=== PATIENT | male | born 1975 | race Caucasian/White ===

== ENCOUNTER → 2019-07-18 | Outpatient (CLI) | payer OTHER ==
--- NOTE | 2019-07-18 16:31 | CARDNUC ---
[place] [address] CARDIAC NUCLEAR IMAGING REPORT Name: DAMI RIVAS Room: [facility]#: [id number] Admission: 07/18/19 Attend Phys: Rafa Sesay, Discharge: Date of : 71 Date of Service: 07/18/19 1630 Report #: [id number] THIS REPORT FOR: cc: FAM - Family physician unknown FAM - Family physician unknown Petr Sherman MD [facility] ~ APPROVED REPORT Study performed: 07/18/2019 09:22:55 Exam: Nuclear Stress Test Indication: Chest pain, Dyspnea, Fatigue, Bradycardia. Patient Location: Out-Patient Stress Tech: Annette Berg Stress Nurse: Shannon Zavala R.N. NM Tech:DARIA Rasmussen Ht: 5 ft 8 in Wt: 200 lbs BSA: 2.04 m2 BMI: 30.40 Medical History Medical History: Chest discomfort, Fatigue, Hyperlipidemia, SOB, Bradycardia, YOSELIN, Dizziness/Vertigo, chews tobacco. Medications: None Allergies: No known drug allergies Cardiac Risk Factors: Age, FHX of CAD, Hyperlipidemia, SOB, Tobacco History (Current/Recent)-chews, Bradycardia. Previous Cardiac Procedures: None Pretest Chest Pain Characteristics: No chest pain Exercise History: Physically active Physical Disabilities: None Meds Held (24 hrs): None Stress Test Details Stress Test: Exercise stress testing was performed using a Matthew protocol. HR Resting HR: 47 bpm Max Heart Rate (APMHR): 174 bpm Max HR Achieved: 158 bpm Target HR (85% APMHR): 147 bpm % of APMHR: 90 Recovery HR: 75 bpm BP Resting BP: 108/72 [place] [address] CARDIAC NUCLEAR IMAGING REPORT Name: DAMI RIVAS Room: [facility]#: [id number] Admission: 07/18/19 Attend Phys: Rafa Sesay, Discharge: Date of : 71 Date of Service: 07/18/19 1630 Report #: [id number] Max BP: 204/86 mmHg ECG Resting ECG: Sinus Rhythm Stress ECG: Sinus Tachycardia ST Change: None Arrhythmia: None Recovery ECG: Sinus Rhythm Recovery ST Change: None Recovery Arrhythmia: None Clinical Reason for Termination: Completed protocol, Maximal effort, Patient Request Stress Symptoms: Dyspnea Exercise duration: 11 min 29 sec Exercise capacity: 13.48 METs Overall Exercise Capacity for Age: Normal The patient tolerated standard Matthew protocol exercise without significant cardiac symptoms. Nurse Comments A 44 year old male presented for a Matthew protocol Nuclear Stress Test r/t increased fatigue, dyspnea, bradycardia, chest discomfort and dizziness. Treadmill well tolerated to stage 4, exercise capacity - Normal. Recovery unremarkable. Patient was escorted by staff to Nuclear Medicine for imaging. Patient was stable and stated he felt good at that time. Stress ECG Conclusion The baseline 12-lead EKG shows sinus rhythm without significant ST segment or T wave abnormality. EKGs obtained during and post exercise stress show sinus rhythm and sinus tachycardia with no significant ST segment or T-wave changes when compared to baseline. There were no stress-induced arrhythmias. NM EXAM: Myocardial Perfusion REST/STRESS Imaging Protocol: Rest Tc-99m/Stress Tc-99m 1 day Resting Data Rest SPECT myocardial perfusion imaging was performed in supine position 30 minutes following the intravenous injection of 10.1 mCi of Tc-99m Sestamibi. Time of rest injection: 754 Date: 07/18/2019 The images were gated to evaluate regional wall motion and calculate left ventricular [place] [address] CARDIAC NUCLEAR IMAGING REPORT Name: DAMI RIVAS Room: [facility]#: [id number] Admission: 07/18/19 Attend Phys: AndrewJuan Reggie Sesay, Discharge: Date of : 71 Date of Service: 07/18/19 1630 Report #: [id number] Administration Route: IV Administration Site: Right Hand Exercise Stress At peak stress, the patient was injected intravenously with 31.2mCi of Tc-99m Sestamibi. Time of stress injection: 939 Date: 07/18/2019 Administration Route: IV Administration Site: Right Hand Gated Stress SPECT was performed 30 minutes after stress injection. The images were gated to evaluate regional wall motion and calculate left ventricular ejection fraction. Prone imaging was performed. Study Quality Study: Good Artifact: No artifact Study Data At rest, the left ventricular ejection fraction was 56%.. Post stress, the left ventricular ejection was 63%.. TID = 0.86. Perfusion Perfusion images obtained at rest and post exercise stress show uniform uptake of the radioisotope throughout the myocardium. There were no defects to suggest infarct or ischemia. Wall Motion Normal left ventricular wall motion. Nuclear Conclusion ECG Findings: negative for ischemia Clinical Findings: negative for ischemia Nuclear Findings: negative for ischemia Exercise Capacity: normal Left Ventricular Function: normal Risk Study: low Myocardial perfusion images show no defect to suggest infarct or ischemia. Left ventricular systolic function appears normal on gated studies. This is a low risk study. <Conclusion> The baseline 12-lead EKG shows sinus rhythm without significant ST segment or T wave abnormality. EKGs obtained during [place] [address] CARDIAC NUCLEAR IMAGING REPORT Name: EVELYNDAMI Gayle Room: [facility]#: [id number] Admission: 07/18/19 Attend Phys: Rafa Sesay, Discharge: Date of : 71 Date of Service: 07/18/19 1630 Report #: [id number] stress show sinus rhythm and sinus tachycardia with no significant ST segment or T-wave changes when compared to baseline. There were no stress-induced arrhythmias. <ELECTRONICALLY SIGNED> By: Petr Sherman MD, FACC 07/18/191629 29 29 Petr Sherman MD, FACC /INF
== END ==
LOC: M.NUC 07-04 16:10
DX: R07.9 Chest pain, unspecified (principal)

== ENCOUNTER → 2019-08-03 | Outpatient (CLI) | payer OTHER | LOC: M.RAD 08:45 | DX: R07.9 Chest pain, unspecified (principal) ==

== ENCOUNTER → 2019-10-25 | Outpatient (CLI) | payer OTHER | LOC: M.CT 08:30 | DX: R00.1 Bradycardia, unspecified (principal); R07.9 Chest pain, unspecified; R06.09 Other forms of dyspnea ==